=== PATIENT | female | born 1985 | race Caucasian/White ===

== ENCOUNTER 2020-07-14 15:11 | Emergency (ER) | payer OTHER, SELFPAY ==
[2020-07-14 15:26] VITALS: BP 125/80; PULSE 87; RESP 20; TEMP 36.8; O2SAT 99; BMI 24.8
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
[2020-07-14 15:47] VITALS: BP 125/80; PULSE 87; RESP 20; TEMP 36.8; O2SAT 99
== END 2020-07-14 15:50 | disposition home or self-care (01) ==
PROVIDERS: Emergency Provider Nurse Practitioner Family; PCP Family Medicine
DX: G56.01 Carpal tunnel syndrome, right upper limb (principal); R20.0 Anesthesia of skin; Z88.2 Allergy status to sulfonamides; F17.210 Nicotine dependence, cigarettes, uncomplicated
CPT/HCPCS: 99201

== ENCOUNTER → 2020-11-03 16:30 | Outpatient (CLI) | payer OTHER, SELFPAY | PROVIDERS: Visit Provider Nurse Practitioner Family | DX: Z11.1 Encounter for screening for respiratory tuberculosis (principal) ==

== ENCOUNTER 2020-11-23 11:20 | Emergency (ER) | payer OTHER, SELFPAY ==
[2020-11-23 11:35] VITALS: BP 130/84; PULSE 95; RESP 20; TEMP 36.9; O2SAT 98; BMI 25.8
--- NOTE | 2020-11-23 11:46 | XR_ITS ---
PROCEDURE: XR HIP RT 2-3V W/PELVIS CLINICAL INDICATION: fall Posttraumatic pain COMPARISON: CR PELAP PELVIS AP ONLY from 05/11/2015 FINDINGS: No acute fracture or dislocation. No lytic or blastic change. There are minimal osteoarthritic changes. There is an area of calcification overlying the right iliac region measuring 12 mm and could represent either a bone island or soft tissue calcification such as an appendicoliths. Tubal ligation clips are present on the left. There is a displaced tubal ligation clip in the left lower quadrant and 1 in the left lateral pelvic region. IMPRESSION: 1. No acute fracture. 2. Minimal osteoarthritic change. 3. Right lower quadrant calcification which could be due to a bone island or appendicoliths. 4. Displaced right-sided tubal ligation clips Dictated by: Tarik Craig MD 11/23/2020 12:34 Tarik Craig MD in [place] 11/23/2020 12:34
--- NOTE | 2020-11-23 12:07 | HMH.EDUTC ---
[facility] [place] Clinical Impression: Sciatic leg pain Disposition: Home, Self-Care Condition on Discharge: Good Instructions: Sciatica, DI for Sciatica, Etodolac Additional Instructions: *Etodolac liane 6 hours with meal as needed for pain/inflammation *Remember you had a Toradol shot in the clinic today, which is similar to Etodolac so do not start this medication until later this evening *Not additional anti-inflammatory like motrin, aleve, advil with the above amount of Etodolac. You can still take Tylenol every 4 hours as needed if you need something else for pain *Ice 20 minutes every 2 hours for the first 48 hours after the initial injury followed by moist heat every 20 minutes 3-4 times a day to affected area *Keep this area active, no movement leads to more stiffness, However take it easy and avoid heavy lifting pushing or pulling *Follow up with you family doctor if no improvement for further treatment and evaluation Return if needed Straight to ER if any life threatening symptoms Prescriptions: Etodolac [Etodolac 200mg Cap*] 200 mg PO Q6H PRN #20 cap PRN Reason: Moderate Pain Transmission Status: Received by [facility] methylPREDNISolone [Medrol 4mg tab] 4 mg PO DIRECTED #21 tab Transmission Status: Received by [facility] Referrals: Rakel Whitman MD [Primary Care Provider] - As needed Time of Disposition: 12:21 Medical Decision Making - John Inquiry Pt receiving controlled substance: No John was queried for this patient: No Vital Signs: 11/23/20 11:35 11/23/20 12:51 Temperature 98.4 F 98.4 F Temperature Source Oral Pulse Rate 95 H Pulse Rate [Right Brachial] 95 H Respiratory Rate 20 20 Blood Pressure 130/84 Blood Pressure [Right Arm] 130/84 Blood Pressure Mean [Right Arm] 99 Blood Pressure Source [Right Arm] Automatic Cuff Blood Pressure Position [Right Arm] Sitting 02 Sat by Pulse Oximetry 98 Oxygen Delivery Method Room Air Orders (Tests/Meds): ED MEDICATIONS Discontinued Medications Generic Name Dose Route Start Last Admin Trade Name Freq PRN Reason Stop Dose Admin Ketorolac Tromethamine 30 mg 11/23/20 12:15 11/23/20 12:30 Ketorolac 60mg/2ml Vial IM 11/23/20 12:16 30 mg ONCE ONE Administration Methylprednisolone Sodium Succinate 125 mg 11/23/20 12:17 11/23/20 12:30 Methylprednisolone Sod Succ 125mg Vial IM 11/23/20 12:18 125 mg ONCE ONE Administration - Radiology Data #1 Image(s): Hip Image Reviewed: Yes I reviewed the patient's radiology image w/the ED provider Preliminary Findings: Normal/NAD Medical Decision Narrative: Patient reports pain in hip area much better after medication [facility] [place] HPI - General Stated complaint: ao 11/19/20fell on right side, pain in right let Time Seen by Provider: 11/23/20 12:07 Mode of Arrival: Ambulatory Source of Information: Patient Limitations: No Limitations Description of Symptoms (Recalled from Triage Doc. by RN): PATIENT STATES SHE FELL 4 DAYS AGO ONTO HER RIGHT HIP. THE FIRST 2 DAYS SHE THE PAIN WAS LIKE A BRUISE; THE LAST 2 DAYS SHE C/O PAIN THAT IS PINCHING AND BURNING AND IS RADIATING DOWN LEFT LEG. PAIN IS WORSE WITH LYING OR SITTING HEENT Symptoms (Recalled from RN notes): No Resp Symptoms (Recalled from RN notes): No Skin Symptoms (Recalled from RN notes): No MS Symptoms (Recalled from RN notes): Yes Functional Status (Recalled from RN notes): WNL - History of Present Illness Provider Complaint: Patient states that she was mopping about 4 days ago when she slipped and fell and landed on her right hip States thats she has been walking on it and the first couple of days felt like she had bruised her hip and for the last 2 days she has been having throbbing like pain her hip/buttock area that is worse when she sits or lays down States that she has not loss control of bowel or bladder and denies any other injury - Related Data Previous Rx's Medicati
[2020-11-23 12:51] VITALS: BP 130/84; PULSE 95; RESP 20; TEMP 36.9; O2SAT 98
== END 2020-11-23 12:59 | disposition home or self-care (01) ==
PROVIDERS: Emergency Provider Nurse Practitioner
DX: M54.31 Sciatica, right side (principal); W01.0XXA Fall on same level from slipping, tripping and stumbling without subsequent striking against object, initial encounter; Y92.019 Unspecified place in single-family (private) house as the place of occurrence of the external cause; F17.210 Nicotine dependence, cigarettes, uncomplicated; Z88.2 Allergy status to sulfonamides
CPT/HCPCS: 73502; 96372; 99202; G0463

== ENCOUNTER 2021-08-17 20:06 | Emergency (ER) | payer OTHER, SELFPAY ==
[2021-08-17 20:08] VITALS: BP 129/72; PULSE 84; RESP 20; TEMP 36.7; O2SAT 98; BMI 25.1
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
[2021-08-17 21:19] VITALS: BP 129/72; PULSE 84; RESP 20; TEMP 36.7; O2SAT 98
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
== END 2021-08-17 22:05 | disposition home or self-care (01) ==
PROVIDERS: Emergency Provider Nurse Practitioner
DX: S63.501A Unspecified sprain of right wrist, initial encounter (principal); Y04.2XXA Assault by strike against or bumped into by another person, initial encounter; Y92.89 Other specified places as the place of occurrence of the external cause; F17.210 Nicotine dependence, cigarettes, uncomplicated
CPT/HCPCS: 73090; 99202; G0463

== ENCOUNTER 2022-01-08 12:18 | Emergency (ER) | payer OTHER, SELFPAY ==
[2022-01-08 12:20] VITALS: BP 119/65; PULSE 83; RESP 18; TEMP 36.5; O2SAT 98; BMI 27.0
--- NOTE | 2022-01-08 12:33 | HMH.EDUTC ---
[facility] [place] Disposition Clinical Impression: Maxillary sinusitis, acute Qualifiers: Recurrence: non-recurrent Qualified Code(s): J01.00 - Acute maxillary sinusitis, unspecified Disposition: Home, Self-Care Condition on Discharge: Good Instructions: DI for Sinusitis Additional Instructions: Start antibiotic patient to take as ordered for a full length of time even if you feel better. Sinus infections do not get better overnight. It may take 2-3 days to notice much improvement so be sure to use conservative measures as discussed for symptoms. Flonase 1 spray each nostril daily to help with nasal congestion, sinus and ear pressure/information Increase fluids Humidifier/vaporizer as needed Tylenol and ibuprofen as needed for fever or pain. If symptoms do not improve or get worse return or be seen in the ER Follow-up with primary care this week Prescriptions: Fluticasone Propionate [Flonase 50mcg nasal spray 16gm] 1 spr NS DAILY 14 Days #9.9 ml Transmission Status: Pending to [facility] Azithromycin [Zithromax 250mg tab] 250 mg PO DIRECTED #6 tab [facility] Status[facility] Referrals: Soumya Mata [Primary Care Provider] - Time of Disposition: 12:37 Medical Decision Making - John Inquiry Pt receiving controlled substance: No [facility] [place] HPI - General Chief complaint: [facility] Stated complaint: possible sinus infection Time Seen by Provider: 01/08/22 12:33 Mode of Arrival: Ambulatory Source of Information: Patient Limitations: No Limitations - History of Present Illness Provider Complaint: 36 yr old female presents for sinus pressure, sinus pain and green/yellow nasal congestion - Related Data Previous Rx's Medication Instructions Recorded mupirocin 2 % topical ointment 1 applic TOPICAL BID 10 Days #15 g 05/11/21 Azithromycin [Zithromax 250mg 250 mg PO DIRECTED #6 tab 01/08/22 tab] Fluticasone Propionate [Flonase 1 spr NS DAILY 14 Days #9.9 ml 01/08/22 50mcg nasal spray 16gm] Allergies Allergy/AdvReac Type Severity Reaction Status Date / Time sulfamethoxazole Allergy Mild Unverified 05/11/21 17:41 [From BACTRIM] trimethoprim [From BACTRIM] Allergy Mild Unverified 05/11/21 17:41 [facility] History - Hepatitis A Screen Attestation statement:: This patient has been screened for Hepatitis A risk factors. I have reviewed the patient's past medical history: Yes Other Surgeries: Yes: - Social History Smoking Status: Current every day smoker # Packs/Day (cigarettes): 1 Alcohol Intake: never Occupational Status: other Family Hx:: Non-contributory ROS Obtained: Yes Systems reviewed as appropriate & no additional complaints - Constitutional Constitutional: Reports system reviewed and no additional complaints, except as docu, Denies fatigue, Denies fever(s) - Eyes Eyes: Reports system reviewed and no additional complaints, except as docu, Denies dry eyes - ENT Ears, Nose, Mouth, and Throat: Reports system reviewed and no additional complaints, except as docu, Reports nasal congestion, Reports nasal discharge, Reports sinus pain, Reports sinus pressure, Reports sore throat - Cardiovascular Cardiovascular: Reports system reviewed and no additional complaints, except as docu, Denies chest pain - Respiratory Respiratory: Reports system reviewed and no additional complaints, except as docu, Denies change in phlegm color - Gastrointestinal Gastrointestingal: Reports: system reviewed and no additional complaints, except as docu. Denies: abdominal pain - Musculoskeletal Musculoskeletal: Reports system reviewed and no additional complaints, except as docu, Denies joint pain - Integumentary/Breasts Skin/Breast: Reports system reviewed and no additional complaints, except as docu, Denies rash - Neurologic Neurologic: Reports system reviewed and no additional complaints, except as docu, Denies dizziness - Endocrine Endocrine:
[2022-01-08 12:44] VITALS: BP 119/65; PULSE 83; RESP 18; TEMP 36.5; O2SAT 98
== END 2022-01-08 12:56 | disposition home or self-care (01) ==
PROVIDERS: Emergency Provider Nurse Practitioner Family; PCP Family Medicine
DX: J01.00 Acute maxillary sinusitis, unspecified (principal); F17.210 Nicotine dependence, cigarettes, uncomplicated; Z79.51 Long term (current) use of inhaled steroids; Z79.899 Other long term (current) drug therapy; Z88.2 Allergy status to sulfonamides; Z88.8 Allergy status to other drugs, medicaments and biological substances
CPT/HCPCS: 96372; 99283

== ENCOUNTER 2022-05-04 08:26 | Emergency (ER) | payer OTHER, SELFPAY ==
[2022-05-04 08:30] VITALS: BP 123/84; PULSE 116; RESP 16; TEMP 37.4; O2SAT 98; BMI 26.4
--- NOTE | 2022-05-04 08:45 | HMH.EDUTC ---
[facility] [place] Dis[place] Clinical Impression: Labyrinthitis of left ear Disposition: Home, Self-Care Condition on Discharge: Good Instructions: Vertigo, Labyrinthitis, DI for Vertigo, Amoxicillin Additional Instructions: Take medication as prescribed Do not drive or operate heavy machinery on Meclizine Do not drive or operate heavy machinery while you are dizzy Return if needed Straight to ER if any life threatening symptoms Follow up with your Family Doctor if no improvement or any worsening of symptoms Prescriptions: Meclizine HCl [Meclizine 25mg Tab] 25 mg PO Q8HP PRN #15 tab PRN Reason: Vertigo Transmission Status: [facility] to [facility] Amoxicillin [Amoxicillin 875MG Tab] 875 mg PO Q12H #20 tab Transmission Status: Pending to [facility] methylPREDNISolone [Medrol 4mg tab] 4 mg PO DIRECTED #21 tab Transmission Status: [facility] Referrals: Soumya Mata [Primary Care Provider] - As needed Forms: Work/School Release Time of Disposition: 08:53 Medical Decision Making - John Inquiry Pt receiving controlled substance: No John was queried for this patient: No Vital Signs: 05/04/22 08:30 05/04/22 08:51 Temperature 99.3 F 99.3 F Temperature Source Oral Pulse Rate 116 H Pulse Rate [Right Brachial] 116 H Respiratory Rate 16 16 Blood Pressure 123/84 Blood Pressure [Right Arm] 123/84 Blood Pressure Mean [Right Arm] 97 Blood Pressure Source [Right Arm] Automatic Cuff Blood Pressure Position [Right Arm] Sitting 02 Sat by Pulse Oximetry 98 Oxygen Delivery Method Room Air [facility] [place] HPI - General Stated complaint: ear pain, dizziness, nausea Time Seen by Provider: 05/04/22 08:45 Mode of Arrival: Ambulatory Source of Information: Patient Limitations: No Limitations Description of Symptoms (Recalled from Triage Doc. by RN): PATIENT C/O LEFT EAR PAIN, VERTIGO, DIZZINESS AND MUSCLE ACHES HEENT Symptoms (Recalled from RN notes): Yes Resp Symptoms (Recalled from RN notes): No Skin Symptoms (Recalled from RN notes): No MS Symptoms (Recalled from RN notes): No Functional Status (Recalled from RN notes): WNL - History of Present Illness Provider Complaint: Patient state that she has been having pain and discomfort in her left ear for several weeks on and off State that now she is having pain/fuzzy feeling and feels like she gets dizzy at times if she turns too quickly States that she was concerned with inner ear infection when symptoms did not improve and today she is still having vertigo - Related Data Previous Rx's Medication Instructions Recorded Amoxicillin [Amoxicillin 875MG 875 mg PO Q12H #20 tab 05/04/22 Tab] Meclizine HCl [Meclizine 25mg Tab] 25 mg PO Q8HP PRN #15 tab 05/04/22 methylPREDNISolone [Medrol 4mg 4 mg PO DIRECTED #21 tab 05/04/22 tab] Allergies Allergy/AdvReac Type Severity Reaction Status Date / Time sulfamethoxazole Allergy Mild Verified 05/04/22 08:39 [From BACTRIM] trimethoprim [From BACTRIM] Allergy Mild Verified 05/04/22 08:39 - Worker's Comp Is this a Worker's Comp case?: No [facility] History - Hepatitis A Screen Attestation statement:: This patient has been screened for Hepatitis A risk factors. I have reviewed the patient's past medical history: Yes Laterality Cases: Bilateral: Myringotomy (Ear Tubes) Other Surgeries: Yes: - Social History Smoking Status: Current every day smoker Tobacco Type: cigarettes # Packs/Day (cigarettes): 1 Alcohol Intake: never Occupational Status: other Family Hx:: Non-contributory ROS Obtained: Yes All systems reviewed & no additional complaints, Yes Systems reviewed as appropriate & no additional complaints - Constitutional Constitutional: Reports system reviewed and no additional complaints, except as docu, Denies body ache, Denies chills, Denies fever(s) - ENT Ears, Nose, Mouth, and Throat: Reports system reviewed and no additional complaints, ex
[2022-05-04 08:51] VITALS: BP 123/84; PULSE 116; RESP 16; TEMP 37.4; O2SAT 98
== END 2022-05-04 08:58 | disposition home or self-care (01) ==
PROVIDERS: Emergency Provider Nurse Practitioner; PCP Family Medicine
DX: H83.02 Labyrinthitis, left ear (principal)
CPT/HCPCS: 99212; G0463

== ENCOUNTER 2022-08-01 13:28 | Emergency (ER) | payer OTHER, SELFPAY ==
[2022-08-01 13:55] LABS: Apearance,Urine Clear (Clear); Bilirubin,Urine Negative (Negative); Blood, Urine Negative (Negative); Color,Urine Dark Yellow (Yellow); Glucose,Urine (UA) Negative (Negative); Ketones,Urine Negative (Negative); PH,Urine 6.5 (5.0-8.5); Protein,Urine Negative (Negative); Specific Gravity, Urine 1.025 (1.005-1.030); UTC Leukocyte Esterase,Urine 1+ (Negative); UTC Nitrate,Urine Negative (Negative); Urobilinogen,Urine 0.2 EU/dl (0.2)
[2022-08-01 14:00] VITALS: BP 115/76; PULSE 89; RESP 18; TEMP 36.7; O2SAT 99; BMI 26.6
--- NOTE | 2022-08-01 14:02 | EXP.UTC ---
Discharge Plan Disposition Patient Disposition: Home, Self-Care Condition: Good Prescriptions Prescriptions: New nitrofurantoin monohyd/m-cryst [Macrobid] 100 mg capsule 100 mg PO Q12H 7 Days Qty: 14 0RF Rx Instructions: must administer with a meal/food phenazopyridine [Pyridium] 200 mg tablet 200 mg PO Q8H 2 Days Qty: 6 0RF No Action methylprednisolone 4 MG tablet 4 mg PO DIRECTED Qty: 21 0RF Rx Instructions: Take as directed on package instructions amoxicillin 875 MG tablet 875 mg PO Q12H Qty: 20 0RF meclizine 25 MG tablet,chewable 25 mg PO Q8HP PRN (Reason: Vertigo) Qty: 15 0RF Referrals Follow up/Referrals: Soumya Mata [Primary Care Provider] - See instructions Activity Restrictions/Add. Instructions Additional Instructions/Restrictions: *Increase fluids. Water not Soda or Tea *Start antibiotic immediately and be sure to take as ordered for the FULL length of time although you should start to see improvement over the next 48 hours *Pyridium as needed Remember this medication will turn your urine . This is normal but it will stain what ever it gets on *You should not use Pyridium for more than 48 hours. If so , follow up with your primary physician to review urine culture and ensure that antibiotic is adequate for infection *Be SURE to follow up anytime for new or worsening symptoms with your family doctor. AND in 48 hours for urine culture results with your family doctor, if you do not have a doctor then you may call back to the [facility] for urine culture results and further treatment. We do recommend that you choose and establish care with a Primary Care Physician. ?AND follow up with them ?in 10-14 days to repeat UA to ensure infection is resolved and blood no longer present *Be sure to let your PCP know that we sent urine cultures from the [facility] so they can follow up to ensure that you area the on the correct antibiotic Call your doctor office and make appointment for 48 hours (2 days from today) ?to follow up and get the results of your urine culture and further treatment Clinical Impressions Clinical Impression: UTI (urinary tract infection) Instructions Patient Instructions: DI for Urinary Tract Infection (UTI), Nitrofurantoin Discharge ED Provider: Karla Hahn [facility] [place] HPI General Stated complaint: pain when urinating Time Seen by Provider: 08/01/22 14:02 History of Present Illness Provider Complaint: Patient states that she has been having burning with urination and feeling of urgency and frequency States that she feels like she may have a UTI so she came in today to get her urine checked Related Data Previous Rx's Medication Instructions Recorded amoxicillin 875 mg tablet 875 mg PO Q12H #20 tabs 05/04/22 meclizine 25 mg chewable tablet 25 mg PO Q8HP PRN Vertigo #15 tabs 05/04/22 methylprednisolone 4 mg tablet 4 mg PO DIRECTED #21 tabs 05/04/22 nitrofurantoin 100 mg PO Q12H 7 days #14 caps 08/01/22 monohydrate/macrocrystals 100 mg capsule (Macrobid) phenazopyridine 200 mg tablet 200 mg PO Q8H pain 2 days #6 tabs 08/01/22 (Pyridium) Allergies Allergy/AdvReac Type Severity Reaction Status Date / Time sulfamethoxazole Allergy Mild Verified 05/04/22 08:39 [From BACTRIM] trimethoprim [From BACTRIM] Allergy Mild Verified 05/04/22 08:39 PFSH PFSH Social History Smoking Status: Current every day smoker tobacco type: cigarettes packs per day: 1 alcohol intake: never current occupational status: other Travel in the last 8 weeks: None ROS Obtained: Yes All systems reviewed & no additional complaints except as documented and Yes Systems reviewed as appropriate & no additional complaints except as documented Constitutional Constitutional: Reports system reviewed and no additional complaints, except as documented and Reports as per HPI ENT Ears, Nose, Mouth, and Throat: Reports system reviewed and no additional complaints, except as documente
[2022-08-01 14:12] VITALS: BP 115/76; PULSE 89; RESP 18; TEMP 36.7; O2SAT 99
== END 2022-08-01 14:15 | disposition home or self-care (01) ==
PROVIDERS: Emergency Provider Nurse Practitioner; PCP Family Medicine
DX: N39.0 Urinary tract infection, site not specified (principal); R42 Dizziness and giddiness; Z79.52 Long term (current) use of systemic steroids; Z88.2 Allergy status to sulfonamides; Z88.8 Allergy status to other drugs, medicaments and biological substances
CPT/HCPCS: 81003; 87086; 99213; G0463

== ENCOUNTER → 2023-01-16 15:34 | Outpatient (CLI) | payer OTHER, SELFPAY ==
--- NOTE | 2023-01-16 15:34 | MR_ITS ---
FINAL REPORT CLINICAL HISTORY: Cervical injury with BUE Radicular features. NUMBNESS AND TINGLING BILATERAL ARMS. RIGHT SIDED NECK PAIN. HEADACHE. NO INJURY OR TRAUMA FINDINGS: Multiplanar MR imaging of the cervical spine was performed without contrast. On the sagittal T2-weighted images, disc degeneration is seen throughout. There is no evidence of fracture. There is mild kyphosis centered at C5-6. The vertebral alignment is otherwise normal. The cervical spinal cord has an unremarkable appearance without evidence of mass, edema or syrinx. The cervicomedullary junction is normal. C2-3: There is a small central disc protrusion without significant canal stenosis or neural foraminal narrowing. C3-4: Right uncovertebral osteophytes with moderate right and mild left neural foraminal narrowing. C4-5: Annular disc bulge with small central disc protrusion. C5-6: Disc osteophyte complex and bilateral foraminal disc protrusions. There is bilateral C6 nerve root impingement. Mild central canal stenosis is seen with AP diameter of the thecal sac measuring 8 mm. C6-7: Annular disc bulge with mild bilateral neural foraminal narrowing. C7-T1: There is no significant canal stenosis or neural foraminal narrowing. IMPRESSION: Multilevel degenerative disc disease with bilateral foraminal disc protrusions at C5-6, bilateral C6 nerve root impingement and mild central canal stenosis. Reviewed, Interpreted and Dictated by Hank Sorensen III, MD Transcribed by Renata Lino Authenticated and [facility]
== END ==
PROVIDERS: PCP Family Medicine; Visit Provider Emergency Medicine
DX: M54.2 Cervicalgia (principal); S14.109A Unspecified injury at unspecified level of cervical spinal cord, initial encounter; R20.0 Anesthesia of skin; R20.2 Paresthesia of skin
CPT/HCPCS: 72141; 76376

== ENCOUNTER → 2023-05-16 15:54 | Outpatient (CLI) | payer OTHER, SELFPAY ==
--- NOTE | 2023-05-16 15:54 | MM_ITS ---
PROCEDURE INFORMATION: Exam: MG Bilateral Screening 3D Mammography Exam date and time: 05/16/2023 3:51 PM Age: 37 years old Clinical indication: Screening mammogram. No personal or family history of breast cancer TECHNIQUE: Imaging protocol: Bilateral Screening tomosynthesis and 2D mammography including computer-aided detection (CAD) when performed. COMPARISON: No relevant prior studies available. FINDINGS: MAMMOGRAPHY: Breast composition: The breast is heterogeneously dense, which may obscure small masses. Mass: 1 cm mass within the upper slightly outer right middle 1/3 should be further assessed with spot views in CC/MLO projection. Ultrasound should also be performed. Architectural distortion: No new or suspicious architectural distortion. Calcifications: No new or suspicious calcifications are present Asymmetric density: No new or suspicious asymmetric density is present Skin thickening: None. Axillary adenopathy: None. IMPRESSION: 1 cm mass within the upper slightly outer right middle 1/3 should be further assessed with spot views in CC/MLO projection. Ultrasound should also be performed. ASSESSMENT: BI-RADS category 0: Incomplete-need additional imaging evaluation
== END ==
PROVIDERS: PCP Family Medicine; Visit Provider Family Medicine
DX: Z12.31 Encounter for screening mammogram for malignant neoplasm of breast (principal)
CPT/HCPCS: 77063; 77067

== ENCOUNTER → 2023-05-19 08:00 | Outpatient (POV) | payer OTHER, SELFPAY ==
[2023-05-19 08:03] VITALS: BP 114/74; PULSE 78; RESP 18; O2SAT 98; BMI 24.6
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
== END ==
LOC: SC.PAIN 08:00
PROVIDERS: PCP Family Medicine; Visit Provider Nurse Practitioner Family
DX: M50.10 Cervical disc disorder with radiculopathy, unspecified cervical region (principal); M48.02 Spinal stenosis, cervical region
CPT/HCPCS: 99202; G0463

== ENCOUNTER → 2023-05-29 13:13 | Outpatient (CLI) | payer OTHER, SELFPAY ==
--- NOTE | 2023-05-29 13:19 | US_ITS ---
PROCEDURE INFORMATION: Exam: US Right Breast, Complete MG Right Diagnostic Breast Tomosynthesis Exam date and time: 05/29/2023 2:12 PM Age: 37 years old Clinical indication: Patient recalled on the basis of a screening mammogram for further evaluation; Right breast; mass TECHNIQUE: Imaging protocol: Complete ultrasound of all four quadrants of the right breast and the retroareolar regions, including ultrasound of the axilla when performed. Right Diagnostic tomosynthesis and 2D mammography including computer-aided detection (CAD) when performed. Unilateral or bilateral exam. COMPARISON: MG MM DIG MAMM DX UNILAT RT CAD 05/29/2023 1:35 PM FINDINGS: MAMMOGRAPHY: Digital diagnostic spot compression views of the right breast and 90 degree lateral view of the right breast demonstrate normal overlapping fibroglandular structures without persistent mass or asymmetry identified. ULTRASOUND: Sonographic images of the right breast including the retroareolar region, all 4 quadrants and the axilla do not demonstrate any solid masses. Incidental 0.3 cm cyst in the 12 o'clock axis 3 cm from the nipple. No architectural distortion or acoustical shadowing. No skin thickening or axillary adenopathy. IMPRESSION: No mammographic or sonographic evidence of malignancy. Annual bilateral mammographic screening is recommended unless otherwise clinically indicated. ASSESSMENT: BI-RADS Category 2: Benign
== END ==
PROVIDERS: PCP Family Medicine; Visit Provider Family Medicine
DX: N63.10 Unspecified lump in the right breast, unspecified quadrant (principal)
CPT/HCPCS: 76641; 77061; 77065; G0279

== ENCOUNTER → 2023-10-02 14:44 | Outpatient (POV) | payer OTHER, SELFPAY ==
--- OUTSIDE RECORDS SUMMARY | 2023-10-02 14:47 | XMS_ITS | Patient Health Record ---
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 250 Tez/ml Blood Hemolyzed Urobili norm normal - 12 mg/dL Bili ++ negative - large Protein 30 negative - 500 mg/dL Nitrites positive negative - positive Ketone negative negative - large mg/dL Ascorbic Acid + trace - large Glucose negative negative - > 1000 mg/dL pH 5 5.0 - 9.0 Spec. Gr. 1.025 1.000 - 1.030 LEUK ca 75 negative - ca. 5 00 Fidelia/ml Urine Culture Reviewed date:12/23/2022 05:41:34 PM Interpretation:Negative Performing Lab:[facility], [facility], [address] [place] [address], [address] [place] [id number], Director - Peng Garcia, Ph.D., [facility], CLIA - [id number] Notes/Report: Results may be impacted due to delay in specimen collection and receipt by laboratory. Urine Source CLEAN CATCH [place] Count >=100,000 CFU/ML (IS OLATE I) Micro Culture Result ESCHERICHIA COLI (I SOLATE 1)
--- NOTE | 2023-10-02 15:18 | EXP.PAIN.SOA ---
[facility] Pain Management SOAP Note Subjective:: Patient is a pleasant 38-year-old female who presents today for follow-up. We are currently treating the patient for neck pain, degenerative disc disease of cervical spine with cervical radiculopathy symptoms, cervical spine stenosis. Today she rates her pain a 7 out of 10. Patient denies any new trauma or injury from her last visit. She does state that her pain is progressively worsened and continues to have significant numbness and tingling into her arms and her hands. She does feel like she has weakness and frequently drops things. Patient states the neck pain is also very bothersome and interferes with her ability perform activities of daily living. Patient was previously ordered physical therapy however she states that she had trouble with vehicles and was unable to make it to this appointment and then needed a new order. Patient is interested in trying this again. Patient has continued to use [id number] medications such as Tylenol and ibuprofen along with heat and ice and topicals with no additional relief. Patient does do home exercise and stretching techniques on a regular basis with no relief. Her John has been reviewed and is appropriate. Review of Systems: General: No recent weight changes, no fever, no sleep disturbances Respiratory: No cough, no shortness of air, no recurring pulmonary infections Cardiovascular/peripheral vascular: No chest pain, no palpitations, no edema, no shortness of breath Gastrointestinal: No new onset incontinence, normal bowel movements reported Genitourinary: No new onset incontinence Musculoskeletal: Neck pain, bilateral arm pain Psychiatric: [Normal mood/affect] Neurological: [Denies weakness in extremities], [denies balance issues] Objective:: Physical Exam: General: Alert and oriented x3, no acute distress, pleasant and cooperative Lungs: Respirations even and unlabored, symmetrical chest expansion Eyes: PERRL Musculoskeletal: Flexion and extension of cervical [spine] somewhat guarded secondary to pain, [antalgic gait noted] Neurological: Speech clear, no gross sensory deficit Assessment:: Degenerative disc disease of cervical spine with cervical radiculopathy symptoms, cervical spinal stenosis Plan:: Patient continues to experience significant pain in her neck with radiating symptoms into her upper extremities. Patient did have limited range of motion of her cervical spine during today's visit. I have discussed with the patient that she may benefit from a cervical epidural steroid injection. Risk and benefits were discussed with the patient and she would like to proceed forward with this plan of care. Patient is not on any blood thinners. I will also order physical therapy for evaluation and treatment of her neck and upper extremity pain. Patient will be scheduled for a FELA C6 or C7. Patient has been instructed to contact the clinic with any concerns before the next appointment. Dr. Naqvi has reviewed this note and agrees with this plan of care. This note was dictated using voice recognition software and make contain errors or omissions. [facility] Disclaimer: The information contained in this section may have been updated after the patient was seen, as this information can be updated by other users. Medical History Cervical nerve root impingement Surgical History H/O knee surgery History of section History of tubal ligation Social History Smoking Status: Current every day smoker tobacco type: cigarettes packs per day: 1 alcohol intake: never substance use type: marijuana current occupational status: employed Travel in the last 8 weeks: None
[2023-10-02 16:36] VITALS: BP 134/80; PULSE 93; RESP 18; O2SAT 96; BMI 25.1
== END ==
PROVIDERS: PCP Family Medicine; Visit Provider Nurse Practitioner Family
DX: M50.10 Cervical disc disorder with radiculopathy, unspecified cervical region (principal); M48.02 Spinal stenosis, cervical region
CPT/HCPCS: 99212; G0463

== ENCOUNTER 2023-10-20 09:32 | Day surgery (SDC) | payer OTHER, SELFPAY ==
[2023-10-20 09:40] VITALS: BP 139/83; PULSE 86; RESP 18; TEMP 36.6; O2SAT 99; BMI 25.1
[2023-10-20 09:45] VITALS: BP 136/76; PULSE 88; O2SAT 100
--- NOTE | 2023-10-20 09:47 | P.PCN_ITS ---
Procedure Date: 10/20/23 Time: 09:30 Anesthesiologist:: Kelvin Borges CRNA Complications:: None Pre-procedure Diagnosis:: Degenerative disc cervical spine multilevels. Cervical radiculopathy. Cervical stenosis. Post-procedure Diagnosis:: Same. Indications for Procedure:: Patient is a very pleasant 38-year-old female comes our clinic today for cervical epidural steroid injection. Patient reports posterior cervical pain as well as bilateral arm radicular symptoms. She rates her pain 7/10. Procedure Details:: Procedure:Cervical epidural steroid injection Informed consent was obtained and the risks and benefits of the procedure were explained to the patient. The patient was taken to the procedure room and noninvasive monitors placed, including noninvasive blood pressure cuff and pulse oximeter. The neck was prepped using Chloraprep as a cleansing solution. The C6- C7 interspace was viewed using fluroscopy. The skin and subcutaneous tissues were anesthetized using lidocaine 1.5% and a 25-gauge needle. After this an 18- gauge Touhy epidural needle was placed into the C6-C7 interspace under fluroscopy guidance and advanced using loss of resistance to air until the epidural space was encountered. After confirmation of needle placement in the epidural space using contrast dye, a solution containing normal saline, 2 mL and Depo-Medrol 80 mg was incrementally injected into the cervical epidural space.~ The patient tolerated the procedure well with no complications. The patient was observed in the Pain Clinic and then discharged home neurologically intact. Plan and Disposition:: Patient was discharged out incident.
[2023-10-20 09:52] VITALS: BP 136/76; PULSE 91; O2SAT 96
[2023-10-20 09:55] VITALS: BP 127/84; PULSE 80; RESP 16; O2SAT 99
== END 2023-10-20 09:55 | disposition home or self-care (01) ==
PROVIDERS: PCP Family Medicine; Visit Provider Nurse Anesthetist, Certified Registered
DX: M50.123 Cervical disc disorder at C6-C7 level with radiculopathy (principal); M48.02 Spinal stenosis, cervical region
CPT/HCPCS: 62321; J1040

== ENCOUNTER → 2023-11-07 10:14 | Outpatient (POV) | payer OTHER, SELFPAY ==
[2023-11-07 10:29] VITALS: BP 137/76; PULSE 101; RESP 20; O2SAT 99; BMI 25.1
--- NOTE | 2023-11-07 10:55 | A.OFFVIS_ITS ---
[facility] Pain Management SOAP Note Subjective:: This patient is a very pleasant 38-year-old female that comes our clinic today for follow-up visit after receiving cervical epidural steroid injection on 10/20/2023. Patient reports 90% improvement terms of her overall cervical neck pain as well as bilateral arm radicular symptoms to the hand. Patient reports today she is having some bilateral hand numbness while driving. She is requesting a second cervical epidural steroid injection. I think this is reasonable given the fact her symptoms are returning to some degree. Patient is continuing with physical therapy currently twice weekly. She is also continuing to do home exercise program. Patient rates her pain today 3/10. Objective:: Patient is awake alert [place] x 3. No acute distress. Flexion-extension cervical spine somewhat guarded secondary to pain. Deep tendon reflexes upper and lower extremities normal. Motor strength upper and lower extremities normal. There is no gross sensory deficit. Gait is normal. Assessment:: Degenerative disc cervical spine multilevels. Cervical radiculopathy. Plan:: Will schedule the patient for a second cervical epidural steroid injection C6-7 level. Discussed in detail with the patient regarding gabapentin for future nerve pain if needed. Patient has had some experience with gabapentin in the past when seeing specialist in [place]. She reports she is fine at this time with the injections. Patient's John #[id number] has been reviewed and appropriate. [facility] Disclaimer: The information contained in this section may have been updated after the patient was seen, as this information can be updated by other users. Medical History Cervical nerve root impingement Surgical History H/O knee surgery History of section History of tubal ligation Social History Smoking Status: Current every day smoker tobacco type: cigarettes packs per day: 1 alcohol intake: never substance use type: marijuana current occupational status: other Travel in the last 8 weeks: None
== END ==
LOC: SC.PAIN 10:15
PROVIDERS: PCP Family Medicine; Visit Provider Nurse Anesthetist, Certified Registered
DX: M50.123 Cervical disc disorder at C6-C7 level with radiculopathy (principal)
CPT/HCPCS: 99212; G0463

== ENCOUNTER 2023-11-21 11:21 | Day surgery (SDC) | payer OTHER, SELFPAY ==
[2023-11-21 11:25] VITALS: BP 134/76; PULSE 86; RESP 16; TEMP 36.6; O2SAT 99; BMI 25.1
[2023-11-21 11:38] VITALS: BP 153/91; PULSE 71; RESP 18; O2SAT 95
[2023-11-21] MEDS: methylPREDNISolone ACETATE 80MG/ML VIAL 80 MG (11:38)
[2023-11-21 11:40] VITALS: BP 129/82; PULSE 82; RESP 18; O2SAT 99
[2023-11-21 11:41] VITALS: BP 153/91; PULSE 71; RESP 18; O2SAT 95
--- NOTE | 2023-11-21 11:42 | P.PCN_ITS ---
Procedure Date: 11/21/23 Time: 11:32 Anesthesiologist:: Kelvin Borges CRNA Complications:: None Pre-procedure Diagnosis:: Degenerative disc cervical spine multilevels. Cervical radiculopathy. Post-procedure Diagnosis:: Same. Indications for Procedure:: Patient is a very pleasant 38-year-old female comes our clinic today for repeat cervical epidural steroid injection. Patient reports 90% improvement terms of her overall cervical spine pain as well as bilateral arm radicular symptoms with her first injection on 10/20/2023. Patient reporting the symptoms have returned only slightly. She rates her pain today 01/13. Procedure Details:: Procedure:Cervical epidural steroid injection Informed consent was obtained and the risks and benefits of the procedure were explained to the patient. The patient was taken to the procedure room and noninvasive monitors placed, including noninvasive blood pressure cuff and pulse oximeter. The neck was prepped using Chloraprep as a cleansing solution. The C6- C7 interspace was viewed using fluroscopy. The skin and subcutaneous tissues were anesthetized using lidocaine 1.5% and a 25-gauge needle. After this an 18- gauge Touhy epidural needle was placed into the C6-C7 interspace under fluroscopy guidance and advanced using loss of resistance to air until the epidural space was encountered. After confirmation of needle placement in the epidural space using contrast dye, a solution containing normal saline, 2 mL and Depo-Medrol 80 mg was incrementally injected into the cervical epidural space.~ The patient tolerated the procedure well with no complications. The patient was observed in the Pain Clinic and then discharged home neurologically intact. Plan and Disposition:: Patient was discharged without incident.
[2023-11-21] MEDS: IOPAMIDOL-200 (41%);10ML VIAL 10 ML IV (11:50)
== END 2023-11-21 11:40 | disposition home or self-care (01) ==
PROVIDERS: PCP Family Medicine; Visit Provider Nurse Anesthetist, Certified Registered
DX: M50.123 Cervical disc disorder at C6-C7 level with radiculopathy (principal)
CPT/HCPCS: 62321; J1040; Q9966

== ENCOUNTER → 2023-12-06 13:04 | Outpatient (POV) | payer OTHER, SELFPAY ==
[2023-12-06 13:40] VITALS: BP 129/81; PULSE 83; RESP 20; O2SAT 96; BMI 25.1
--- NOTE | 2023-12-06 13:56 | EXP.PAIN.SOA ---
[facility] Pain Management SOAP Note Subjective:: Patient is a pleasant 38-year-old female who presents today for follow-up of cervical epidural steroid injection C6-C7 on 11/21/2023. We are currently treating the patient for degenerative disc disease of cervical spine with cervical radiculopathy symptoms, cervical spinal stenosis. Today she rates her pain a 1 out of 10. Patient denies any new trauma or injury. She does states she has had approximately 95% improvement following this injection and feels like it still currently helping. Patient states she has been able to increase her activity with decreased pain symptoms and feels overall more functional. She is prescribed compounded cream. Her John has reviewed and is appropriate. Review of Systems: General: No recent weight changes, no fever, no sleep disturbances Respiratory: No cough, no shortness of air, no recurring pulmonary infections Cardiovascular/peripheral vascular: No chest pain, no palpitations, no edema, no shortness of breath Gastrointestinal: No new onset incontinence, normal bowel movements reported Genitourinary: No new onset incontinence Musculoskeletal: Neck pain Psychiatric: [Normal mood/affect] Neurological: [Denies weakness in extremities], [denies balance issues] Objective:: Physical Exam: General: Alert and oriented x3, no acute distress, pleasant and cooperative Lungs: Respirations even and unlabored, symmetrical chest expansion Eyes: PERRL Musculoskeletal: Flexion and extension of cervical [spine] somewhat guarded secondary to pain, [antalgic gait noted] Neurological: Speech clear, no gross sensory deficit Assessment:: Degenerative disc disease of cervical spine with cervical radiculopathy symptoms, cervical spinal stenosis Plan:: Patient has had significant improvement following her cervical epidural does not any additional injection therapy at this time. Patient will return to clinic in 1 month for reevaluation of symptoms and plan of care. Patient has been instructed to contact the clinic with any concerns before the next appointment. Dr. Naqvi has reviewed this note and agrees with this plan of care. This note was dictated using voice recognition software and make contain errors or omissions. [facility] Disclaimer: The information contained in this section may have been updated after the patient was seen, as this information can be updated by other users. Medical History Cervical nerve root impingement Surgical History H/O knee surgery History of section History of tubal ligation Social History Smoking Status: Current every day smoker tobacco type: cigarettes packs per day: 1 alcohol intake: never substance use type: marijuana current occupational status: other Travel in the last 8 weeks: None
== END ==
LOC: SC.PAIN 13:04
PROVIDERS: PCP Family Medicine; Visit Provider Nurse Practitioner Family
DX: M50.123 Cervical disc disorder at C6-C7 level with radiculopathy (principal); M48.02 Spinal stenosis, cervical region
CPT/HCPCS: 99212; G0463

== ENCOUNTER → 2024-01-11 10:19 | Outpatient (POV) | payer OTHER, SELFPAY ==
[2024-01-11 10:22] VITALS: BP 140/79; PULSE 94; RESP 20; BMI 25.1
--- NOTE | 2024-01-11 11:00 | A.OFFVIS_ITS ---
[facility] Pain Management SOAP Note Subjective:: Patient is a pleasant 38-year-old female who presents today for 1 month follow- up. She rates her pain today a 2 out of 10. Patient denies any new trauma or injury. She states that she has continued to have significant improvement following her cervical epidural of C6-C7 on 11/21/2023. She states that she has noticed it a little bit more however it is still very manageable and feels that it is not severe like what it was. Patient was prescribed compounding cream in the past. She states that she has had significant improvement that she has not had to use this cream for some time. Her John has been reviewed and is appropriate. Review of Systems: General: No recent weight changes, no fever, no sleep disturbances Respiratory: No cough, no shortness of air, no recurring pulmonary infections Cardiovascular/peripheral vascular: No chest pain, no palpitations, no edema, no shortness of breath Gastrointestinal: No new onset incontinence, normal bowel movements reported Genitourinary: No new onset incontinence Musculoskeletal: Neck pain Psychiatric: [Normal mood/affect] Neurological: [Denies weakness in extremities], [denies balance issues] Objective:: Physical Exam: General: Alert and oriented x3, no acute distress, pleasant and cooperative Lungs: Respirations even and unlabored, symmetrical chest expansion Eyes: PERRL Musculoskeletal: Flexion and extension of cervical [spine] somewhat guarded secondary to pain, [antalgic gait noted] Neurological: Speech clear, no gross sensory deficit Assessment:: Degenerative disc disease of cervical spine with cervical radiculopathy symptoms, cervical spine spinal stenosis Plan:: Patient continues to do well following her cervical epidural does not require any additional injection therapy at this time. Patient will return to clinic in 2 months for reevaluation of symptoms and plan of care. Patient has been instructed to contact the clinic with any concerns before the next appointment. Dr. Naqvi has reviewed this note and agrees with this plan of care. This note was dictated using voice recognition software and make contain errors or omissions. [facility] Disclaimer: The information contained in this section may have been updated after the patient was seen, as this information can be updated by other users. Medical History Cervical nerve root impingement Surgical History H/O knee surgery History of section History of tubal ligation Social History Smoking Status: Current every day smoker tobacco type: cigarettes packs per da y: 1 alcohol intake: never substance use type: marijuana current occupational status: other Travel in the last 8 weeks: None
== END ==
LOC: SC.PAIN 10:19
PROVIDERS: PCP Family Medicine; Visit Provider Nurse Practitioner Family
DX: M50.123 Cervical disc disorder at C6-C7 level with radiculopathy (principal); M48.02 Spinal stenosis, cervical region
CPT/HCPCS: 99212; G0463

== ENCOUNTER 2024-01-15 15:00 | Outpatient (RCR) | payer OTHER, SELFPAY ==
--- NOTE | 2023-10-12 11:30 | HMH.PTOPEV ---
PT Outpatient Evaluation Rehab PT Outpatient Evaluation Start: 10/12/23 11:17 Freq: Status: Active Protocol: Document 10/12/23 11:17 RAFAELA (Rec: 10/12/23 11:30 RAFAELA [id number]) E-signed By Emeterio Joyner, PT Outpatient Therapy Subjective History Subjective History Patient is a 38 year old female presenting to outpatient PT with reports of chronic cervical spine pain with BUE radicular symptoms (L >R). Symptoms of insidious onset starting approx 1 year ago. Patient is experiencing cervicogenic headaches, as well. Most recent imaging indicates multilevel degenerative disc disease with bilateral foraminal disc protrusions at C5-6, bilateral C6 nerve root impingementand mild central canal stenosis. Comorbidities include hx of R knee arthroscopic sx, OA and CTS. New diagnosis of cancer in past 12 No months? Chief Complaint Pain,Stiff,Paresthesia, Weakness Symptom Type Throb,Dull,Numbness,Tingling Symptoms Relieved By Rest/Positioning,OTC Meds, Prescription Meds Symptoms Aggravated By Physical Activity,Lifting Prior Functional Limitations None Current Functional Limitations Reaching,Lifting,Housework, Driving,Sleeping Symptom Description Intermittent Level of pain today (0-10) 3 Pain scale - at its best (0-10) 0 Pain scale - at its worst (0-10) 7 Cervical Eval Palpation Cervical Muscles R Suboccipital,L Suboccipital, R Upper Trapezius,L Upper Trapezius Cervical/Thoracic Palpation Findings Tenderness Posture Head/C-Spine Posture Sitting Position C-Spine Flattened Head/C-Spine Posture Standing Position C-Spine Flattened Flexibility Deficits Upper Trapezius Muscle Length (R) Moderate Tightness,(L) Moderate Tightness Levaetor Scapulae Muscle Length (R) Moderate Tightness,(L) Moderate Tightness Scalene Group Muscle Length (R) Moderate Tightness,(L) Moderate Tightness Pectoralis Minor Muscle Length (R) Moderate Tightness,(L) Moderate Tightness Passive Joint Mobility Cervical PIVM WNL: R OA L OA R AA L AA R C2/3 L C2/3 R C3/4 L C3/4 R C4/5 L C4/5 R C5/6 L C5/6 R C6/7 L C6/7 R C7/T1 L C7/T1 AROM Cervical Spine Extension Active Range of 56 Motion (degrees) Cervical Spine Flexion Active Range of 42 Motion (degrees) Cervical Spine Right Lateral Flexion 37 Active Range of Motion (degrees) Cervical Spine Left Lateral Flexion 39 Active Range of Motion (degrees) Cervical Spine Right Rotation Active 54 Range of Motion (degrees) Cervical Spine Left Rotation Active 46 Range of Motion (degrees) MMT Bilateral Deltoid (C5) 5 Normal Biceps Brachii Strength Grade 5 Normal Wrist Extension Strength Grade 5 Normal Triceps Brachii Strength Grade 5 Normal Wrist Flexion Strength Grade 5 Normal Extensor Pollicis Longus Strength Grade 5 Normal Finger Abduction Strength Grade 5 Normal Altered Sensation Upper extremity Dermatomes C6,C7 Comment NT/burning Special Test C-Spine Foraminal Compression (Spurling) Negative Right,Positive Left Test C-Spine Foraminal Distraction Test Positive Neck Disability Index Neck Disability Index Section 1: Pain Intensity The pain is moderate at the moment Section 2: Personal Care (washing, I can look after myself dressing, etc.) normally but it causes extra pain Section 3: Lifting I can lift heavy weights but it gives extra pain Section 4: Reading I can read as much as I want with moderate pain in my neck Section 5: Headaches I have slight headaches, which come infrequently Section 6: Concentration I can concentrate fully when I want to with no difficulty Section 7: Work I cannot do my usual work Section 8: Driving I can't drive my car as long as I want because of moderate pain in my Section 9: Sleeping My sleep is greatly disturbed (3-5 hrs sleepless) Section 10: Recreation I am able to engage in most, but not all of my usual recreation NDI Score 19 Outpatient Therapy Assessment Impairments Problems/Impairmments Palpation Tenderness,Impaired Range of Motion,Impaired Driving,Impaired Lifting, Impaired Household Care, Impaired Work Activities, Subjective C/O Pain Prognosis Rehab Potential Good Clinical Impression Consistent with Diagnosis Yes Short Term Goals Number of Weeks 2 Decrease Subjective C/O Pain Yes: 5/10 at worst Patient to be Ind w/ HEP Yes Residential Goals Number of Weeks 4-6 Decreased Palpation Tenderness Yes: 1/4 Increase Range of Motion Yes: WNL Restore Ability to Lift Objects to Yes: 10 lb without difficulty Shoulder Level Restore Ability to Lift Objects Overhead Yes: Improve Ability For Household Care Yes Improve Tolerance to Work Activities Yes Decrease Subjective C/O Pain Yes: 2/10 at worst Outpatient Therapy Plan of Care Treatment Plan May Include Therapeutic Exercise Including Home Yes Exercise Program Manual Therapy Techniques Yes Neuromuscular Re-education Yes Therapeutic Activities to Return to Yes Previous Functional/Work Level Gait Training Yes ADL/Self Care Education Yes Mechanical Traction Yes Dry Needling Yes Thermal Modalities Yes Electrical Stimulation Yes Ultrasound/Phonophoresis Yes Iontophoresis Yes Massage Yes Eval/Re-Eval Yes Frequency Times per week 2 Duration Number of Weeks 4-6 Addendums This patient is a candidate for social No or vocational rehab? Patient/Guardian verbally acknowledges Yes understanding of treatment program and consents to further treatment? Patient/Guardian verbally acknowledges Yes understanding of diagnosis, prognosis and goals for treatment? Eval Complexity PT Charges 09109 - Moderate Complexity Shoulder/Elbow Eval Shoulder Objective Measurements Elbow Objective Measurements PHYSICIAN CERTIFICATION: I certify the specified therapy services for Faye Taveras are required, authorized, and reviewed every 30 days.
--- NOTE | 2023-12-26 16:39 | HMH.RHREAS ---
Rehab Reassessment Rehab OP Re-assessment Start: 10/12/23 11:17 Freq: Status: Active Protocol: Document 12/26/23 16:29 RAFAELA (Rec: 12/26/23 16:38 RAFAELA [id number]) E-signed By Emeterio Joyner, PT Neck Disability Index Neck Disability Index Section 1: Pain Intensity The pain is moderate at the moment Section 2: Personal Care (washing, I can look after myself dressing, etc.) normally but it causes extra pain Section 3: Lifting I can lift heavy weights but it gives extra pain Section 4: Reading I can read as much as I want with moderate pain in my neck Section 5: Headaches I have slight headaches, which come infrequently Section 6: Concentration I have a fair degree of difficulty in concentrating when I want to Section 7: Work I can only do my usual work, but no more Section 8: Driving I can drive my car as long as I want with slight pain in my neck Section 9: Sleeping My sleep is slightly disturbed (less than 1 hr sleepless) Section 10: Recreation I am able to engage in all my recreation activities with some pain in NDI Score 13 Rehab Re-assessment Subjective Subjective My neck feels much better, but I've been getting these quick little sharp pains in my R shoulder every once in a while. Objective Objective Notes AROM: WNL MMT: WNL Neuro: intermittent NT to C7/8 dermatomes; int sharp pain to C5 dermatome Pain: 3/10 currently; 6/10 at worst over the past week Assessment Progress Assessment Progressing as Expected Assessment Notes Patient has recently began to experience intermittent radicular symptom to a different dermatome than previously reported. Symptoms elicited by cervical flexion, indicating possible disc pathology. Patient would benefit from continuing with skilled PT interventions in order to address intermittent pain with cervical flexion and progress mechanical traction. Patient goals met All except for pain. Goals Not Met Pain goal. Revised Goals NA Plan Plan Continue with current POC. Frequency of Therapy 2x/week Duration of therapy 2 weeks Time and Billing Re-Eval Time 15 Re-Eval Billing Units 1 PHYSICIAN CERTIFICATION: I certify the specified therapy services for Faye Taveras are required, authorized, and reviewed every 30 days.
== END 2024-01-15 16:30 | disposition home or self-care (01) ==
LOC: PT 15:00
PROVIDERS: PCP Family Medicine; Visit Provider Nurse Practitioner Family
DX: M54.2 Cervicalgia (principal); M79.601 Pain in right arm; M79.602 Pain in left arm; R20.0 Anesthesia of skin
CPT/HCPCS: 20560; 20561; 97010; 97012; 97014; 97110; 97112; 97163; 97164; 97530; G0283

== ENCOUNTER 2024-02-19 10:04 | Outpatient (POV) | payer OTHER, SELFPAY ==
[2024-02-19 10:10] VITALS: BP 156/94; PULSE 94; RESP 18; TEMP 36.6; O2SAT 98; BMI 25.7
--- NOTE | 2024-02-19 10:28 | A.OFFVIS_ITS ---
[facility] Pain Management SOAP Note Subjective:: Patient is a pleasant 38-year-old female who presents today for follow-up. Today she rates her pain a 7 out of 10. Patient states that she did just take some medicine and that it did bring it down some but that the pain is all in her neck and upper extremities. Patient does state that her left hand numbness and tingling is worse than her right. Patient states that this is unrelated to any new injury or trauma. She states that she did last weekend drive for 4 hours and seem like it did aggravate her neck symptoms. Patient did previously get a cervical epidural back in November that did provide 90% relief up until the last week or so. Patient states that the pain does interfere with her ability perform activities of daily living such as cooking and cleaning. Patient has continued to do at home exercising and stretching between her last injection and now. She states that she would like to do a repeat injection if possible. Patient is prescribed compounded cream. Her John has been reviewed. Review of Systems: General: No recent weight changes, no fever, no sleep disturbances Respiratory: No cough, no shortness of air, no recurring pulmonary infections Cardiovascular/peripheral vascular: No chest pain, no palpitations, no edema, no shortness of breath Gastrointestinal: No new onset incontinence, normal bowel movements reported Genitourinary: No new onset incontinence Musculoskeletal: Neck pain, bilateral arm pain Psychiatric: [Normal mood/affect] Neurological: [Denies weakness in extremities], [denies balance issues] Objective:: Physical Exam: General: Alert and oriented x3, no acute distress, pleasant and cooperative Lungs: Respirations even and unlabored, symmetrical chest expansion Eyes: PERRL Musculoskeletal: Flexion and extension of cervical [spine] somewhat guarded secondary to pain, [antalgic gait noted] Neurological: Speech clear, no gross sensory deficit Assessment:: Degenerative disc disease of cervical spine with cervical radiculopathy sympt oms, cervical spinal stenosis Plan:: Patient is experiencing worsening pain in her neck with radiating symptoms to her upper extremities. Patient does have limited range of motion of her cervical spine with a positive Spurling's test. I have discussed with the patient that she may benefit from a repeat cervical epidural steroid injection. Risk and benefits were discussed with patient and she would like to proceed forward with this plan of care. Patient has tried and failed conservative treatment. Patient has had 90% relief with her last cervical epidural lasting 2-1/2 months. During that time the patient was much more functional and had decreased pain symptoms. We will schedule the patient for a FELA C6-C7 under fluoroscopy. Patient has continued to do at home exercise and stretching between her last epidural and now. Patient has been instructed to contact the clinic with any concerns before the next appointment. Dr. Naqvi has reviewed this note and agrees with this plan of care. This note was dictated using voice recognition software and make contain errors or omissions. [facility] Disclaimer: The information contained in this section may have been updated after the patient was seen, as this information can be updated by other users. Medical History Cervical nerve root impingement Surgical History H/O knee surgery History of section History of tubal ligation Family History (Updated 02/19/24 @ 10:11 by Micaela Fong RN) Other No significant family history Social History Smoking Status: Current every day smoker tobacco type: cigarettes packs per day: 1 alcohol intake: never substance use type: marijuana current occupational status: other Travel in the last 8 weeks: None
== END 2024-02-19 23:59 ==
LOC: SC.PAIN 10:05
PROVIDERS: PCP Family Medicine; Visit Provider Nurse Practitioner Family
DX: M50.123 Cervical disc disorder at C6-C7 level with radiculopathy (principal); M48.02 Spinal stenosis, cervical region
CPT/HCPCS: 99212; G0463

== ENCOUNTER 2024-03-05 10:09 | Day surgery (SDC) | payer OTHER, SELFPAY ==
[2024-03-05 10:30] VITALS: BP 109/75; PULSE 75; RESP 16; O2SAT 98; BMI 25.1
[2024-03-05] MEDS: IOPAMIDOL-200 (41%);10ML VIAL 10 ML IV (10:42)
[2024-03-05 10:47] VITALS: BP 121/74; PULSE 75; RESP 18; O2SAT 98
[2024-03-05 10:54] VITALS: BP 118/57; PULSE 72; RESP 18; O2SAT 97
[2024-03-05] MEDS: methylPREDNISolone ACETATE 80MG/ML VIAL 80 MG (10:54)
[2024-03-05 10:56] VITALS: BP 118/57; PULSE 72; RESP 18; O2SAT 97
--- NOTE | 2024-03-05 12:30 | P.PCN_ITS ---
Procedure Date: 03/05/24 Time: 10:30 Anesthesiologist:: Kelvin Borges CRNA Complications:: None Pre-procedure Diagnosis:: Degenerative disc cervical spine multilevels. Cervical radiculopathy. Post-procedure Diagnosis:: Same. Indications for Procedure:: Patient is a very pleasant 38-year-old female comes our clinic today for repeat cervical epidural steroid injection. Patient reports moderate to significant improvement terms of her overall cervical neck pain as well as bilateral arm ra dicular symptoms. She rates her pain today /10. Procedure Details:: Procedure:Cervical epidural steroid injection Informed consent was obtained and the risks and benefits of the procedure were explained to the patient. The patient was taken to the procedure room and noninvasive monitors placed, including noninvasive blood pressure cuff and pulse oximeter. The neck was prepped using Chloraprep as a cleansing solution. The C6- C7 interspace was viewed using fluroscopy. The skin and subcutaneous tissues were anesthetized using lidocaine 1.5% and a 25-gauge needle. After this an 18- gauge Touhy epidural needle was placed into the C6-C7 interspace under fluroscopy guidance and advanced using loss of resistance to air until the epidural space was encountered. After confirmation of needle placement in the epidural space using contrast dye, a solution containing normal saline, 2 mL and Depo-Medrol 80 mg was incrementally injected into the cervical epidural space.~ The patient tolerated the procedure well with no complications. The patient was observed in the Pain Clinic and then discharged home neurologically intact. Plan and Disposition:: Patient was discharged without incident.
== END 2024-03-05 10:47 | disposition home or self-care (01) ==
LOC: SC.PAINP 10:10
PROVIDERS: PCP Family Medicine; Visit Provider Nurse Anesthetist, Certified Registered
DX: M50.123 Cervical disc disorder at C6-C7 level with radiculopathy (principal)
CPT/HCPCS: 62321; J1010; Q9966

== ENCOUNTER 2024-08-05 10:53 | Outpatient (POV) | payer BC, OTHER, SELFPAY ==
--- NOTE | 2024-08-05 11:45 | A.OFFVIS_ITS ---
[facility] Disclaimer: The information contained in this section may have been updated after the patient was seen, as this information can be updated by other users. Medical History Cervical nerve root impingement Surgical History H/O knee surgery History of section History of tubal ligation Family History Other No significant family history Social History Smoking Status: Current every day smoker tobacco type: cigarettes packs per day: 1 alcohol intake: never substance use type: marijuana current occupational status: other Travel in the last 8 weeks: None PM Subjective & Objective Subjective Subjective:: Patient is a pleasant 39-year-old female who presents today for follow-up of cervical epidural steroid injection C6-C7 on 03/05/2024. Today she rates her pain a 2 out of 10. Patient states that she has had 100% relief following this injection and it really worked up until the last couple of weeks where she has started to notice a little bit more numbness and tingling into her arms however it is still not as severe like it was. Patient states that it is in the light and dying from what the difference was before the injection. Patient states she has been able to increase her activity with overall decreased pain and feels much more functional. Patient does state today that she does want to do additional injections in future. She is also states that she definitely does not want it to get as severe as what it initially was. Her John has been reviewed and is appropriate. She is prescribed compounded cream from our office. Review of Systems: General: No recent weight changes, no fever, no sleep disturbances Respiratory: No cough, no shortness of air, no recurring pulmonary infections Cardiovascular/peripheral vascular: No chest pain, no palpitations, no edema, no shortness of breath Gastrointestinal: No new onset incontinence, normal bowel movements reported Genitourinary: No new onset incontinence Musculoskeletal: Arm numbness tingling Psychiatric: [Normal mood/affect] Neurological: [Denies weakness in extremities], [denies balance issues] Pain at rest (0-10 scale): 2 Objective Objective:: Physical Exam: General: Alert and oriented x3, no acute distress, pleasant and cooperative Lungs: Respirations even and unlabored, symmetrical chest expansion Eyes: PERRL Musculoskeletal: Flexion and extension of cervical [spine] somewhat guarded secondary to pain Neurological: Speech clear, no gross sensory deficit Has patient had previous pain injection?: Yes Percent improvement in pain since last injection: 100% Conservative treatment options previously tried: Home exercise plan Length of treatment: Longer than 12 weeks Meds Home Medications and Allergies Home Medications ?Medication ?Instructions ?Recorded ?Confirmed ?Type No Known Home Medications 01/06/23 03/05/24 History New Prescriptions to Start Prescriptions: Allergies Allergy/AdvReac Type Severity Reaction Status Date / Time sulfamethoxazole Allergy Mild Verified 03/05/24 10:31 [From BACTRIM] trimethoprim [From BACTRIM] Allergy Mild Verified 03/05/24 10:31 Assessment and Plan *Assessment and plan (1) Cervical radiculopathy: Status: Acute Category: Medical Code(s): M54.12 - Radiculopathy, cervical region (2) Cervical disc disease: Status: Acute Category: Medical Code(s): M50.90 - Cervical disc disorder, unspecified, unspecified cervical region Plan Patient has had significant improvement following her cervical epidural and is starting to just now experience more numbness and tingling into her arms however it is still manageable currently. I have discussed with patient that I will see her back in 1 month for reevaluation of symptoms and plan of care. Patient has been instructed to contact the clinic with any concerns before the next appointment. Dr. Naqvi has reviewed this note and agrees with this plan of care. This note was dictated using voice recognition software and make contain errors or omissions. All injections are used with Lidocaine or Bupivacaine and Depo Medrol.
[2024-08-05 13:26] VITALS: BP 129/77; PULSE 85; RESP 16; O2SAT 98; BMI 25.1
== END 2024-08-05 23:59 | disposition home or self-care (01) ==
LOC: SC.PAIN 10:56
PROVIDERS: PCP Family Medicine; Visit Provider Nurse Practitioner Family
DX: M50.10 Cervical disc disorder with radiculopathy, unspecified cervical region (principal); F17.210 Nicotine dependence, cigarettes, uncomplicated; F12.90 Cannabis use, unspecified, uncomplicated
CPT/HCPCS: 99212; G0463

== ENCOUNTER 2024-09-04 09:10 | Outpatient (POV) | payer SELFPAY ==
--- NOTE | 2024-09-04 09:20 | EXP.PAIN.SOA ---
[facility] Disclaimer: The information contained in this section may have been updated after the patient was seen, as this information can be updated by other users. Medical History Cervical nerve root impingement Surgical History H/O knee surgery History of section History of tubal ligation Family History Other No significant family history Social History Smoking Status: Current every day smoker tobacco type: cigarettes packs per day: 1 alcohol intake: never substance use type: marijuana current occupational status: other Travel in the last 8 weeks: None PM Subjective & Objective Subjective Subjective:: Patient is a pleasant 39-year-old female who presents today for follow-up. She rates her pain today a 5 out of 10. She did previously have a cervical epidural steroid injection C6-C7 on 03/05/2024. Patient states that she has had 100% relief following this injection however she is going back towards her baseline now. At her last visit it was starting to bother her with more numbness and tingling primarily on the left arm going down. She does state today that it is much worse and that she would like to see about having a repeat injection. She does also state that she has been having more pain along her right groin area and hip. She states this is been a thing that is going on for years and will occasionally have a flareup however the last 2 weeks has been more constant. She does state however that the neck symptoms are much worse than the groin symptoms and would like to do an injection for her neck first. Her John has been reviewed and is appropriate. She is prescribed compounded cream from our office. Review of Systems: General: No recent weight changes, no fever, no sleep disturbances Respiratory: No cough, no shortness of air, no recurring pulmonary infections Cardiovascular/peripheral vascular: No chest pain, no palpitations, no edema, no shortness of breath Gastrointestinal: No new onset incontinence, normal bowel movements reported Genitourinary: No new onset incontinence Musculoskeletal: Arm numbness tingling, neck pain Psychiatric: [Normal mood/affect] Neurological: [Denies weakness in extremities], [denies balance issues] Pain at rest (0-10 scale): 5 Objective Objective:: Physical Exam: General: Alert and oriented x3, no acute distress, pleasant and cooperative Lungs: Respirations even and unlabored, symmetrical chest expansion Eyes: PERRL Musculoskeletal: Flexion and extension of cervical [spine] somewhat guarded secondary to pain, [antalgic gait noted] positive Spurling's test Neurological: Speech clear, no gross sensory deficit Has patient had previous pain injection?: No Conservative treatment options previously tried: Home exercise plan Length of treatment: Longer than 12 weeks Meds Home Medications and Allergies Home Medications ?Medication ?Instructions ?Recorded ?Confirmed ?Type No Known Home Medications 01/06/23 09/04/24 History New Prescriptions to Start Prescriptions: Allergies Allergy/AdvReac Type Severity Reaction Status Date / Time sulfamethoxazole Allergy Mild Verified 03/05/24 10:31 [From BACTRIM] trimethoprim [From BACTRIM] Allergy Mild Verified 03/05/24 10:31 Assessment and Plan *Assessment and plan (1) Cervical stenosis of spine: Status: Acute Category: Medical Code(s): M48.02 - Spinal stenosis, cervical region (2) Cervical radiculopathy: Status: Acute Category: Medical Code(s): M54.12 - Radiculopathy, cervical region (3) Bulge of cervical disc without myelopathy: Status: Acute Category: Medical Code(s): M50.30 - Other cervical disc degeneration, unspecified cervical region (4) Cervical neck pain with evidence of disc disease: Status: Acute Category: Medical Code(s): M50.90 - Cervical disc disorder, unspecified, unspecified cervical region Plan Patient is experiencing worsening pain in her neck with radiating symptoms of numbness and tingling into both extremities however with the left being worse. Patient did have limited range of motion of her cervical spine and a positive Spurling's test. Patient did previously have a cervical epidural back in February of this year that did provide 100% relief and has lasted up until about the last 4 weeks. I did go over risk and benefits of repeat injection and she would like to proceed forward with plan of care. Patient did have such significant overall improvement of her daily function with the last injection. I did also discuss with the patient in future she may benefit from a right SI injection. We will follow-up with this at future appointments. Patient has tried and failed conservative therapy including recent chiropractor therapy and continued at home stretching exercise for longer than 12 weeks. Patient will be scheduled for a FELA C6-C7 under fluoroscopy. Patient has been instructed to contact the clinic with any concerns before the next appointment. Dr. Naqvi has reviewed this note and agrees with this plan of care. This note was dictated using voice recognition software and make contain errors or omissions. All injections are used with Lidocaine or Bupivacaine and Depo Medrol.
[2024-09-04 09:59] VITALS: BP 126/77; PULSE 84; RESP 16; O2SAT 100; BMI 25.1
== END 2024-09-04 23:59 | disposition home or self-care (01) ==
PROVIDERS: PCP Family Medicine; Visit Provider Nurse Practitioner Family
DX: M48.02 Spinal stenosis, cervical region (principal); M50.10 Cervical disc disorder with radiculopathy, unspecified cervical region; F17.210 Nicotine dependence, cigarettes, uncomplicated
CPT/HCPCS: 99212; G0463